=== PATIENT | female | born 1960 | race Caucasian/White ===

== ENCOUNTER 2018-12-24 08:38 | Inpatient (IN) | payer OTHER ==
[~2018-12-24] VITALS: Ht 132.1 cm; Wt 42.5 kg
[~2018-12-24 08:38] MED LIST: BISA-51 OR; BISA-51 PR; DIVA250T51 PO; DOCU-94 PO; LEVO25TA49 PO; LORA-154 PO; MULT-2 PO
[2018-12-24 09:39] LABS: Albumin 2.7 g/dL (3.4-5.0); BUN/Creatinine Ratio 15.7; Calcium 8.8 mg/dL (8.5-10.1); Potassium 4.5 mmol/L (3.5-5.1)
[2018-12-24 09:41] LABS: Basophils # (auto) 0 uL; Basophils % (auto) 0.4 % (0.0-2.0); Bilirubin, Total 0.4 mg/dL (0.2-1.0); Eosinophils # (auto) 0 uL; Eosinophils % (auto) 0.2 % (0.0-7.0); Hemoglobin 16.9 g/dL (12.2-16.2); Lymphocytes # (auto) 1.8 uL; Lymphocytes % (auto) 26.7 % (10.0-50.0); Mean Corpuscular Hemoglobin 36.7 pg (28.0-32.0); Mean Corpuscular Hgb Conc. 33.2 g/dL (32.0-36.0); Mean Corpuscular Volume 110.4 fL (80.0-100.0); Monocytes # (auto) 1.2 uL; Monocytes % (auto) 17.6 % (0.0-12.0); Neutrophils # (auto) 3.8 uL; Neutrophils % (auto) 55.1 % (37.0-80.0); Nucleated Red Blood Cells % 0.1 %; Platelet Count (auto) 259 10^3/uL (140-450); Red Blood Cells 4.62 10^6/uL (4.0-5.20); Red Cell Distribution Width 14.2 % (11.8-14.3); Total Protein 8.8 g/dL (6.4-8.2); White Blood Cell 6.9 10^3/uL (4.4-10.8)
[2018-12-24] MEDS ORDERED: SODIUM CHLORIDE 0.9% 1,000 ML IV ONE ×2 (10:12→14:00)
[2018-12-24] MEDS ORDERED: cefTRIAXone 1GM/50ML D5W 50 ML IV ONE (10:15)
[2018-12-24 10:44] LABS: Basophils # (auto) 0 uL; Eosinophils # (auto) 0 uL; Eosinophils % (auto) 0.2 % (0.0-7.0); Hematocrit 50.5 % (36.0-46.0); Nucleated Red Blood Cells % 0.1 %
[2018-12-24 10:49] LABS: Basophils % (auto) 0.2 % (0.0-2.0); Hemoglobin 16.6 g/dL (12.2-16.2); Lymphocytes # (auto) 1.9 uL; Lymphocytes % (auto) 30.2 % (10.0-50.0); Mean Corpuscular Hemoglobin 36.4 pg (28.0-32.0); Mean Corpuscular Hgb Conc. 32.9 g/dL (32.0-36.0); Mean Corpuscular Volume 110.5 fL (80.0-100.0); Monocytes % (auto) 15.5 % (0.0-12.0); Neutrophils # (auto) 3.3 uL; Neutrophils % (auto) 53.9 % (37.0-80.0); Platelet Count (auto) 279 10^3/uL (140-450); Red Blood Cells 4.57 10^6/uL (4.0-5.20); Red Cell Distribution Width 14.3 % (11.8-14.3); White Blood Cell 6.2 10^3/uL (4.4-10.8)
[2018-12-24 11:01] LABS: INR 1.04 (0.9-1.15); Partial Thromboplastin Time 27.3 sec (23.64-32.05)
[2018-12-24 11:03] LABS: Lactic Acid w/Reflex 3.6 mmol/L (0.4-2.0)
[2018-12-24 11:30] LABS: Anion Gap 7 (5-15); BUN/Creatinine Ratio 16.7; Blood Urea Nitrogen 16 mg/dL (7-18); Carbon Dioxide 26 mmol/L (21-32); Chloride 106 mmol/L (98-107); GFR African American 77 mL/min; GFR Non-African American 63 mL/min; Glucose 117 mg/dL (74-106); Potassium 4.7 mmol/L (3.5-5.1); Sodium 139 mmol/L (136-145)
[2018-12-24 11:31] LABS: Alanine Aminotransferase 19 U/L (13-56); Albumin 2.5 g/dL (3.4-5.0); Alkaline Phosphatase 126 U/L (45-117); Aspartate Aminotransferase 46 U/L (15-37); Bilirubin, Total 0.3 mg/dL (0.2-1.0); Calcium 8.8 mg/dL (8.5-10.1); Total Protein 8.4 g/dL (6.4-8.2)
[2018-12-24] MEDS ORDERED: PROMETHAZINE HCL 25 MG/ML 1ML IV PRN (14:00)
[2018-12-24] MEDS ORDERED: LACTULOSE 20Gm/30ML SOLN PO PRN (14:00)
[2018-12-24] MEDS ORDERED: NITROGLYCERIN 0.4 MG SL TAB SL PRN (14:00)
[2018-12-24] MEDS ORDERED: traMADol HCL 50 MG TAB PO PRN (14:00)
[2018-12-24] MEDS ORDERED: MORPHINE SULF INJ 2 MG/ML SYRINGE 1ML IV PRN (14:00)
[2018-12-24] MEDS ORDERED: PIPERACILLIN-TAZOB 3.375GM 100 ML IV ONE (14:00)
[2018-12-24] MEDS ORDERED: DEXTROSE (50%) 50ML SYRG IV PRN (14:00)
[2018-12-24] MEDS ORDERED: ACETAMINOPHEN 500 MG TAB PO PRN (14:00)
[2018-12-24] MEDS: SODIUM CHLORIDE 0.9% 1,000 ML IV SCH (15:00)
[2018-12-24 16:43] VITALS: BP 96/50
[2018-12-24] MEDS: PIPERACILLIN-TAZOB 3.375GM 100 ML IV SCH ×2 (18:14→23:51)
[2018-12-24] MEDS ORDERED: IOHEXOL 350 MG/ML 100ML IJ ONE (19:04)
--- NOTE | 2018-12-24 19:15 | NUR ---
Spoke with radiology in regards to pending CT angiograph with contrast. Patient unable to sign consents. Per radiology, give them a call back once consent has been given by POA.
--- NOTE | 2018-12-24 19:20 | NUR ---
Opening Shift Note Assumed care of patient. Patient AOx0 patient aphasic, does respond to touch. No S/S of distress/SOB or pain. Instructed on POC and to call for assist PRN. Bed in lowest locked position, call light within reach, side rails up x2, fall precautions in place. Will continue to monitor for changes Q1hr and PRN.
--- NOTE | 2018-12-24 20:15 | NUR ---
Unable to reach next of kin Called sister Leonard x3 with no answer, in order to get consent for CT. Left Leonard message to please call back. Called caregiver Sahra x2, with no success. Phone did not ring and there was no answering loop machine operator. Charge nurse aware. Patient asymptomatic and sleeping at this time. Will make hospitalist aware.
--- NOTE | 2018-12-24 20:40 | NUR ---
Spoke with hospitalist Spoke with TIMOTHY Sher in regards to pending CT angiograph with contrast. Informed hospitalist of d-dimer result and being unable to reach next of kin for consent. Per TIMOTHY Sher, bring consent down for him and Dr. Leongsef to sign.
--- NOTE | 2018-12-24 20:55 | NUR ---
Called radiology to inform them that consent has been signed by TIMOTHY hSer and Dr. Borrero. Will continue care.
--- NOTE | 2018-12-24 22:10 | NUR ---
Patient off unit Pt off unit via bed for CT angio.
[2018-12-24] MEDS: ENOXAPARIN SOD 40 MG/0.4 ML SYRINGE SC SCH (22:26)
[2018-12-24 23:25] VITALS: BP 95/59
[2018-12-25] VITALS (26 sets, daily range): BP systolic 67–135; BP diastolic 23–109
--- NOTE | 2018-12-25 05:02 | NUR ---
Hospitalist paged TIMOTHY Sher paged regarding patient's low BP. Waiting for call back. Continue care.
--- NOTE | 2018-12-25 05:42 | NUR ---
Hospitalist returned call COUNTY HEALTH OFFICER Christos returned call, updated on patient status and reason for call, new orders received and read back for verification. Continue care.
[2018-12-25] MEDS: SODIUM CHLORIDE 0.9% 1,000 ML IV SCH ×2 (05:46→16:56)
[2018-12-25] MEDS: PIPERACILLIN-TAZOB 3.375GM 100 ML IV SCH ×3 (05:51→18:27)
[2018-12-25] MEDS ORDERED: SODIUM CHLORIDE 0.9% 500 ML IV ONE ×2 (06:00→15:15)
--- NOTE | 2018-12-25 08:00 | NUR ---
Opening shift note Patient appears to be sleeping flat supine, awakes at sound of voice. Patient is aphagic. Resp unlab and even. No s/s of distress or pain. Seizure Precautions Patient assessed and determined to be at risk or positive for seizure activity. Bed rails padded, threat monitoring analyst remains on patient, suction set up at bedside. Repositioned patient on right side. Patient had small bowel movement. Performed skin care, changed linen. Applied Z-guard and placed opti foam on patient. Patient tolerated well. Patient remains on right side with HOB elevated.
[2018-12-25] MEDS ORDERED: PANTOPRAZOLE 40 MG TAB PO SCH (10:00)
[2018-12-25] MEDS: ENOXAPARIN SOD 40 MG/0.4 ML SYRINGE SC SCH (10:07)
--- NOTE | 2018-12-25 10:07 | NUR ---
Aspiration risk While attempting to medicate patient with PO med, patient was unable to bolus apple sauce in back of mouth and swallow. PO med held at this time. Patient remains on aspiration precautions.
[2018-12-25] MEDS ORDERED: ALBUTEROL SULF 2.5 MG/0.5ML(0.5%) NEB SOLN NEB PRN (12:30)
[2018-12-25] MEDS ORDERED: IPRATROPIUM BROM 0.5 MG/2.5ML INH SOL NEB PRN (12:30)
--- NOTE | 2018-12-25 13:10 | NUR ---
PAGED RT REGARDING ORDER FOR DEEP SUCTIONING
--- NOTE | 2018-12-25 13:18 | NUR ---
RT RETURN CALL UPDATED RT ON CURRENT DEEP SUCTIONING ORDER. RT AWARE.
--- NOTE | 2018-12-25 13:45 | NUR ---
RT AT BEDSIDE FOR DEEP SUCTIONING
--- NOTE | 2018-12-25 13:53 | NUR ---
SPUTUM SAMPLE OBTAINED AND SENT
[2018-12-25] MEDS ORDERED: CLINDAMYCIN 600MG IV 50 ML IV SCH (14:00)
--- NOTE | 2018-12-25 15:08 | NUR ---
LOW BP REASSESSED BLOOD PRESSURE. SEE EMR. UPDATED MD STEVEN ON CURRENT STATUS. RECEIVED ORDERS FOR DARLYN FOR STRICT I&O. PER SHE WILL REVIEW CHART FOR CURRENT BLOOD PRESSURE.
--- NOTE | 2018-12-25 16:00 | NUR ---
Adams catheter insertion Patient assessed and determined to be in need of adams catheter. Order obtained from MD. Patient educated on catheter and reason for insertion. All questions answered. Adams catheter 16 guage Polish inserted with clean sterile technique. Patient tolerated well.
--- NOTE | 2018-12-25 16:11 | NUR ---
SKIN ASSESSMENT-WOUND PHOTO PATIENT CONTINUES TO HAVE RED, BLANCHABLE SKIN ON SACRUM DESPITE Q2HR TURN. WOUND PHOTOS TAKEN.
--- NOTE | 2018-12-25 16:38 | NUR ---
SWALLOW EVALUATED. PATIENT HAS OWN TEETH UPPER AND LOWER. PATIENT HAS DOWNS SYNDROME BUT ABLE TO FOLLOW ONE STEP COMMANDS. NURSING PRESENT. PATIENT ABLE TO TOLERATE PUREE DIET TEXTURE WITH NECTAR THICKENED LIQUIDS. PATIENT COUGHED ON THIN LIQUIDS DURING EVALUATION. NURSING REPORTS DIFFICULTY WITH MEDS THIS AM.
--- NOTE | 2018-12-25 16:48 | NUR ---
MD return call Updated MD on current status. Received orders. Reread orders back to MD.
[2018-12-25] MEDS ORDERED: VANCOMYCIN PER PHARMACY 0 MG IV SCH (17:00)
--- NOTE | 2018-12-25 17:12 | NUR ---
REPORT RECEIVED FROM KARIS YEUNG FROM TELEMETRY FLOOR. PATIENT TO GO TO ROOM 101 ICU.
--- NOTE | 2018-12-25 17:12 | NUR ---
SBAR TO STEAM BOX HAND ENDORSED CARE AND SBAR TO STEAM BOX HAND
--- NOTE | 2018-12-25 17:15 | NUR ---
FAMILY UPDATE ATTEMPTED TO CONTACT PATIENT'S SISTER CLARIBEL TO UPDATE ON STATUS. NO ANSWER. UNABLE TO LEAVE MESSAGE ATTEMPTED TO CONTACT PATIENT'S COMMERCIAL ESTIMATOR ROMÁN. NO ANSWER. UNABLE TO LEAVE MESSAGE AT THIS TIME.
--- NOTE | 2018-12-25 17:20 | NUR ---
PATIENT TRANSFER TO ICU
--- NOTE | 2018-12-25 17:24 | NUR ---
SISTER CONTACT SISTER MARTHA CALLED BACK. UPDATED SISTER ON TX TO ICU. ALL QUESTIONS AND CONCERNS ADDRESSED AT THIS TIME.
--- NOTE | 2018-12-25 17:27 | NUR ---
PATIENT ARRIVED TO ICU VIA BED ACCOMPANIED BY CHARGE NURSE AND FLOOR NURSE. PATIENT CONNECTED TO PORTABLE MONITOR. AND PLACED ON OXYGEN. SATURATIONS 87% ON 2 LITERS, INCREASED TO 5 LITERS AND SATURATIONS INCREASED TO 95-97%. COARSE LUNG SOUNDS, SUCTIONED PATIENT. BED IN LOW POSITION, CALL LIGHT IN REACH. WILL CONTINUE TO MONITOR.
[2018-12-25] MEDS: NOREPINEPHRINE 8 MG/250ML KIT 250 ML IV SCH (19:06)
--- NOTE | 2018-12-25 19:24 | NUR ---
OPENING SHIFT RECEIVED REPORT FORM DAY SHIFT RN. ASSUMED CARE OF PATIENT. PATIENT IN BED SLEEPING WITH NO SIGNS OR SYMPTOMS OF SOB, PAIN OR DISTRESS. CURRENTLY ON 5L 02 NASAL CANNULA, 02 SAT - 94%. REPOSITIONED FOR COMFORT. LEFT ANTECUBITAL IV - CLEAN/DRY/INTACT. SANTIZO HUNG TO GRAVITY ON BED RAIL. BED IN LOWEST POSITION, PADDED SIDE RAILS UP X2, CALL LIGHT WITHIN REACH. WILL CONTINUE TO MONITOR.
[2018-12-25] MEDS ORDERED: VANCOMYCIN 750mg/250ml 250 ML IV ONE (20:00)
[2018-12-25] MEDS: IPRATROPIUM BROM 0.5 MG/2.5ML INH SOL NEB SCH (20:35)
[2018-12-25] MEDS: ACETYLCYSTEINE 10 %(100MG/ML) SOL 4ML NEB SCH (20:35)
[2018-12-25] MEDS: ALBUTEROL SULF 2.5 MG/0.5ML(0.5%) NEB SOLN NEB SCH (20:35)
--- NOTE | 2018-12-25 20:35 | NUR ---
IV INSERTION LEFT WRIST 22G IV INSERTED. PATIENT TOLERATED WELL.
--- NOTE | 2018-12-25 21:30 | NUR ---
PATIENT TRANSFERRED TO ROOM 266.
[2018-12-25] MEDS: VALPROATE INJ 250 MG in SODIUM CHL 0.9% 50 ML IV SCH (22:44)
[2018-12-25] MEDS: FAMOTIDINE (10MG/ML) 2ML VL IV SCH (22:44)
[2018-12-26] VITALS (90 sets, daily range): BP systolic 68–122; BP diastolic 37–83
[2018-12-26] MEDS: PIPERACILLIN-TAZOB 3.375GM 100 ML IV SCH ×4 (00:04→18:09)
[2018-12-26] MEDS: ALBUTEROL SULF 2.5 MG/0.5ML(0.5%) NEB SOLN NEB SCH ×5 (00:05→23:27)
[2018-12-26] MEDS: IPRATROPIUM BROM 0.5 MG/2.5ML INH SOL NEB SCH ×5 (00:05→23:27)
[2018-12-26] MEDS: ACETYLCYSTEINE 10 %(100MG/ML) SOL 4ML NEB SCH ×5 (00:05→23:27)
--- NOTE | 2018-12-26 03:30 | NUR ---
MORNING CARE PERFORMED MORNING CARE WITH CHG WIPES AND WASH CLOTHS TO THE FACE. PARTIAL LINEN CHANGE AND GOWN CHANGED. REPOSITIONED FOR COMFORT. BED IN LOWEST POSITION, PADDED SIDE RAILS UP X2, CALL LIGHT WITHIN REACH. WILL CONTINUE TO MONITOR.
--- NOTE | 2018-12-26 05:40 | NUR ---
CALLED QUYEN (SISTER) AND UPDATED HER ON PLAN OF CARE.
[2018-12-26 05:59] LABS: Urine Bacteria NONE SEEN /hpf (None Seen); Urine Blood 1+ /uL (Negative); Urine Specific Gravity 1.018 (1.001-1.035); Urine WBC 3 /hpf (0 - 5)
--- NOTE | 2018-12-26 07:25 | NUR ---
END OF SHIFT REPORT GIVEN TO DAY SHIFT RN.
--- NOTE | 2018-12-26 07:30 | NUR ---
Opening Shift Note Assumed care of patient, laying in bed, eyes closed, arousable to shaking, oriented to self, unable to follow commands. No S/S of distress/SOB or pain. See interventions for complete assessment. Bed locked on low position, side rails up x2, bed alarms on at all times, will continue to monitor for changes Q1hr and PRN.
--- NOTE | 2018-12-26 07:31 | NUR ---
Levophed running at 4mcg/min via LT AC IV, BP 84/44, increased Levophed to 5mcg/min. Will continue to monitor.
[2018-12-26] MEDS ORDERED: VANCOMYCIN 750mg/250ml 250 ML IV SCH (10:15)
[2018-12-26] MEDS: LEVOTHYROXINE SODIUM 100 MCG/5 ML INJ IV SCH (11:03)
[2018-12-26] MEDS: ENOXAPARIN SOD 40 MG/0.4 ML SYRINGE SC SCH (11:03)
[2018-12-26] MEDS: FAMOTIDINE (10MG/ML) 2ML VL IV SCH ×2 (11:03→22:32)
[2018-12-26] MEDS: VALPROATE INJ 250 MG in SODIUM CHL 0.9% 50 ML IV SCH ×2 (12:08→22:00)
--- NOTE | 2018-12-26 13:30 | NUR ---
Call placed to patient's sister Leonard via telephone number [phone] to obtain telephone consent for PICC line insertion, not picking up, left a message. Awaiting call back.
--- NOTE | 2018-12-26 13:35 | NUR ---
Call placed to patient's caregiver Sahra, not a working number. Addendum: 12/26/18 at 1412 by Duyen Diaz RN telephone number [phone]
--- NOTE | 2018-12-26 14:12 | NUR ---
Placed another call to patient's caregiver Sahra at telephone number [phone], not picking up, message left. Awaiting call back.
--- NOTE | 2018-12-26 14:35 | NUR ---
Dr Blake at bedside, updated on patient's status. Patient seen and examined. No new orders at this time. Addendum: 12/26/18 at 1437 by Duyen Diaz RN With new orders, will carry out
--- NOTE | 2018-12-26 15:55 | NUR ---
MIDLINE placement Patient/Patient significant other educated on need for MIDLINE placement. All risks and benefits explained and all questions and concerns addressed prior to procedure. Noted past medical history and allergies with no contraindications. INR and Plt counts within acceptable range. 4 fr MIDLINE inserted via right brachial vein using [email or web address]'s [employer] US and Tip Location System. Sterile technique with maximum barrier precautions utilized. Blood return obtained from the single lumen and it flushed easily with NS using proper technique. MIDLINE secured with Stat-lock; biodisc and occlusive dressing applied. Less than 5ml EBL noted during procedure. MIDLINE 20cm internally w/ 0cm externally. *Baseline Arm Circumference 24cm at 1cm above inserion site. MIDLINE lot # [id number]. Note:
--- NOTE | 2018-12-26 15:56 | NUR ---
OK to use MIDLINE Elizabeth Geller. notified now OK to use MIDLINE.
--- NOTE | 2018-12-26 16:00 | NUR ---
Received call from patient's sister Leonard, able to provide password. Updated on patient's status and POC, sister verbalized understanding. Informed MD ordered a PICC line for this patient and her consent is needed for the procedure , Leonard states "I will call my friend doctor first." Awaiting call back.
[2018-12-26] MEDS: NOREPINEPHRINE 8 MG/250ML KIT 250 ML IV SCH (17:31)
[2018-12-26] MEDS: SODIUM CHLORIDE 0.9% 1,000 ML IV SCH (18:09)
--- NOTE | 2018-12-26 18:45 | NUR ---
Patient ate pureed diet with maximum assist, strict aspiration precaution in placed. Patient consumed 30% of dinner tray.
--- NOTE | 2018-12-26 19:27 | NUR ---
OPENING SHIFT RECEIVED REPORT FROM DAY SHIFT RN. ASSUMED CARE OF PATIENT. PATIENT IN BED WATCHING TV WITH NO SIGNS OR SYMPTOMS OF SOB, PAIN OR DISTRESS. CURRENTLY ON 2L 02 NASAL CANNULA, 02 SAT - 96%. RIGHT UPPER ARM MIDLINE, LEFT ANTECUBITAL AND LEFT WRIST IV - CLEAN/DRY/INTACT. SANTIZO HUNG TO GRAVITY ON BED RAIL. REPOSITIONED FOR COMFORT. BED IN LOWEST POSITION, PADDED SIDE RAILS UP X2, CALL LIGHT WITHIN REACH. WILL CONTINUE TO MONITOR.
--- NOTE | 2018-12-26 22:44 | NUR ---
PAGED HOSPITALIST, AWAITING CALL BACK.
--- NOTE | 2018-12-26 22:53 | NUR ---
HOSPITALIST CALLED BACK, MADE AWARE THAT DEPACON IV UNAVAILABLE. GAVE OK TO HOLD MED AT THIS TIME.
[2018-12-27] VITALS (68 sets, daily range): BP systolic 77–118; BP diastolic 39–76
[2018-12-27] MEDS: PIPERACILLIN-TAZOB 3.375GM 100 ML IV SCH ×4 (00:14→18:06)
[2018-12-27] MEDS: SODIUM CHLORIDE 0.9% 1,000 ML IV SCH ×2 (01:00→11:00)
--- NOTE | 2018-12-27 04:10 | NUR ---
MORNING CARE PERFORMED MORNING CARE WITH CHG WIPES AND WASH CLOTHS TO THE FACE. PARTIAL LINEN CHANGE AND GOWN CHANGED. REPOSITIONED FOR COMFORT. SKIN REASSESSED AT THIS TIME. WILL CONTINUE TO MONITOR.
[2018-12-27 05:00] LABS: Eosinophils # (auto) 0.2 uL; Monocytes # (auto) 0.4 uL; Red Cell Distribution Width 13.7 % (11.8-14.3); White Blood Cell 2.5 10^3/uL (4.4-10.8)
[2018-12-27 05:03] LABS: Basophils # (auto) 0.1 uL; Basophils % (auto) 2.4 % (0.0-2.0); Eosinophils % (auto) 6.4 % (0.0-7.0); Hematocrit 39.6 % (36.0-46.0); Hemoglobin 13.4 g/dL (12.2-16.2); Lymphocytes # (auto) 0.7 uL; Lymphocytes % (auto) 26.5 % (10.0-50.0); Mean Corpuscular Hemoglobin 36.9 pg (28.0-32.0); Mean Corpuscular Hgb Conc. 33.7 g/dL (32.0-36.0); Mean Corpuscular Volume 109.3 fL (80.0-100.0); Monocytes % (auto) 16.7 % (0.0-12.0); Neutrophils # (auto) 1.2 uL; Nucleated Red Blood Cells % 0.2 %; Platelet Count (auto) 212 10^3/uL (140-450); Red Blood Cells 3.62 10^6/uL (4.0-5.20)
--- NOTE | 2018-12-27 05:20 | NUR ---
SPOKE WITH QUYEN (SISTER) UPDATED HER ON PLAN OF CARE.
[2018-12-27 05:26] LABS: Albumin 1.6 g/dL (3.4-5.0); BUN/Creatinine Ratio 5.7; Calcium 7.7 mg/dL (8.5-10.1)
[2018-12-27 05:30] LABS: Potassium 2.8 mmol/L (3.5-5.1)
--- NOTE | 2018-12-27 05:33 | NUR ---
PAGED HOSPITALIST, AWAITING CALL BACK.
[2018-12-27 05:37] LABS: Bilirubin, Total 0.2 mg/dL (0.2-1.0); Total Protein 5.5 g/dL (6.4-8.2)
[2018-12-27] MEDS: ACETYLCYSTEINE 10 %(100MG/ML) SOL 4ML NEB SCH ×3 (06:28→17:56)
[2018-12-27] MEDS: ALBUTEROL SULF 2.5 MG/0.5ML(0.5%) NEB SOLN NEB SCH ×3 (06:28→17:56)
[2018-12-27] MEDS: IPRATROPIUM BROM 0.5 MG/2.5ML INH SOL NEB SCH ×3 (06:28→17:56)
[2018-12-27] MEDS ORDERED: POTASSIUM EFFERVESENT TAB 25 MEQ PO ONE (06:30)
--- NOTE | 2018-12-27 06:38 | NUR ---
HOSPITALIST CALLED BACK, GAVE ORDERS FOR 40 MEQ POTASSIUM PO.
--- NOTE | 2018-12-27 07:24 | NUR ---
END OF SHIFT REPORT GIVEN TO DAY SHIFT RN.
--- NOTE | 2018-12-27 07:30 | NUR ---
RECEIVED PATIENT SITTING UP IN THE BED, O2 AT 2L BY N/C, PATIENT IS NONVERBAL AND DOESN'T FOLLOW COMMANDS, SHE IS MENTALLY CHALLENGED, SCD'S TO KRYSTYNA LEGS, SANTIZO TO GRAVITY, SALINE LOCK TO THE LEFT WRIST 22G, FLUSHED AND PATENT, LAC WITH 20G SALINE LOCK CATHETER WITH ANTIBIOTICS INFUSING BY THE IV PUMP, MIDLINE TO THE MAZIN WITH NOREPINEPHRINE AT 5MCG/KG/MIN INFUSING BY THE IV PUMP,
--- NOTE | 2018-12-27 08:30 | NUR ---
WAS FEED HER BREAKFAST AND EATS WELL
--- NOTE | 2018-12-27 09:01 | NUR ---
DR ZABALA IN TO SEE THE PATIENT AND IS AWARE OF THE POTASSIUM LEVEL
--- NOTE | 2018-12-27 09:20 | NUR ---
DR ZABALA TALKING TO THE SISTER REGARDING THE THE POC FOR THE PATIENT
--- NOTE | 2018-12-27 09:50 | NUR ---
PATIENT REMAINS A FULL CODE PER THE SISTER
[2018-12-27] MEDS: LEVOTHYROXINE SODIUM 100 MCG/5 ML INJ IV SCH (10:05)
[2018-12-27] MEDS: ENOXAPARIN SOD 40 MG/0.4 ML SYRINGE SC SCH (10:05)
[2018-12-27] MEDS: VALPROATE INJ 250 MG in SODIUM CHL 0.9% 50 ML IV SCH ×2 (10:05→22:40)
[2018-12-27] MEDS: FAMOTIDINE (10MG/ML) 2ML VL IV SCH ×2 (10:05→22:40)
--- NOTE | 2018-12-27 10:05 | NUR ---
EXPLAIN THE MEDICATIONS TO THE PATIENT EVEN THOUGH SHE DOESN'T UNDERSTAND THE DOSAGE, USAGE AND THE SIDE EFFECTS, AND MEDS GIVEN ORDERED
--- NOTE | 2018-12-27 11:00 | NUR ---
NOREPINEPHRINE WAS STOPPED WILL CONTINUE TO MONITOR PATIENT'S B/P, TO KEEP GREATER THEN 90
--- NOTE | 2018-12-27 11:00 | NUR ---
BREATHING TREATMENT BEING GIVEN PATIENT SUCTIONED ORALLY WAS UNABLE TO BE NASALLY SUCTION BY RT
--- NOTE | 2018-12-27 12:00 | NUR ---
PATIENT TRIES TO PUSH YOU AWAY, EVERY TIME YOU TRY TO TAKE HER BLOOD OR SUCTION OR HELP HER
[2018-12-27] MEDS: Ensure HIGH Protein Chocolate 8oz Bottle PO SCH ×3 (12:25→23:23)
--- NOTE | 2018-12-27 12:45 | NUR ---
BEING FEED HER LUNCH BY THE CT Addendum: 12/27/18 at 1247 by Radha Calderon RN BY NGUYEN MACARIO
--- NOTE | 2018-12-27 13:30 | NUR ---
PATIENT HAD A SMALL BM, CLEANED, Z GUARD APPLIED TO THE SACRUM AND LINEN CHANGED
[2018-12-27] MEDS ORDERED: VANCOMYCIN 500 MG in D5W 5% 100 ML IV SCH (14:00)
--- NOTE | 2018-12-27 14:29 | NUR ---
FIRST SET OF BLOOD CULTURES BEING DRAWN
--- NOTE | 2018-12-27 14:31 | NUR ---
B/P 99/42, PLACED A MITTEN TO THE LEFT HAND PATIENT PULLING IN HER SANTIZO
--- NOTE | 2018-12-27 14:51 | NUR ---
Nutrition Assessment/consult Notes please see attached link for complete assessment Est. Needs BW 51 [id number] kcal (23-25 kcal/kgBW), 51-61 gms pro (1.0-1.2 gms/kgBW r/t severe hypoalb). Will continue to monitor pertinent labs and reassess nutrient need prn Addendum: 12/27/18 at [address] Amended: Links added.
[2018-12-27 14:52] LABS: BUN/Creatinine Ratio 4.3; Calcium 7.4 mg/dL (8.5-10.1); Potassium 3.1 mmol/L (3.5-5.1)
[2018-12-27] MEDS ORDERED: POTASSIUM CHL 20 Meq TABLET PO ONE (15:00)
--- NOTE | 2018-12-27 15:30 | NUR ---
POTASSIUM GIVEN 40MEQ FOR REPEAT LEVEL OF 3.1, POTASSIUM TAKEN PO
--- NOTE | 2018-12-27 16:02 | NUR ---
SITTING UP IN BED JUST LOOKING AROUND THE ROOM, NO VERBAL RESPONSE
[2018-12-27] MEDS: NOREPINEPHRINE 8 MG/250ML KIT 250 ML IV SCH (17:00)
--- NOTE | 2018-12-27 17:00 | NUR ---
LOOKING TOWARDS THE TV AND LOOKING AROUND THE ROOM
--- NOTE | 2018-12-27 17:56 | NUR ---
Respiratory note: AT BEDSIDE FOR MED MARTIN PONCE.
--- NOTE | 2018-12-27 18:00 | NUR ---
SISTER (SHANNON)CALLED TO INQUIRE ABOUT THERE PATIENT AND EXPRESS TO HER THERE WAS NO CHANGE FROM WHEN SHE TALKED TO THE DOCTOR EARLIER
--- NOTE | 2018-12-27 18:34 | NUR ---
SITTING UP IN BED BEING FEED HER DINNER AND EATING NO PROBLEMS WITH SWALLOWING, NS INFUSING INTO THE MAZIN MIDLINE BY THE IV PUMP AND ANTIBIOTICS INFUSING INTO THE MAZIN MIDLINE BY THE IV PUMP, SANTIZO TO GRAVITY, O2 AT 2L BY N/C, SCD TO THE LEFT LEG, RT LEG HAS B/P CUFF ON IT, NO SIGNS OF PAIN, WILL CONTINUE TO MONITOR AND GIVE REPORT TO THE NEXT SHIFT
--- NOTE | 2018-12-27 19:30 | NUR ---
Opening Shift Note Assumed care of patient, lying on bed with eyes closed, arousal by voice, nonverbal, no eyes contact. Breathing on O2NC 2LPM, even and nonlabored, No S/S of distress/SOB or pain. 22G saline lock at left wrist. Mid-line at right upper arm, CDI site, infusing NS. Bed in low position, call light with in reach, all alarms are audible, fall and safety precaution in place. No family at bedside at this time. SCD on both legs. Instructed on POC, will continue to monitor for changes Q1hr and PRN.
--- NOTE | 2018-12-27 22:35 | NUR ---
Condition update/ supplement Pt's condition and v/s stable. Fed Pt with Ensure mixed with thickener, Pt swallowed slowly, sometimes kept the food in the mouth and swallowed slowly. Continue care.
[2018-12-28] VITALS: BP_SYST 103; BP_SYST 97; BP_DIAS 63; BP_DIAS 64
[2018-12-28] MEDS: ALBUTEROL SULF 2.5 MG/0.5ML(0.5%) NEB SOLN NEB SCH ×4 (00:12→19:35)
[2018-12-28] MEDS: IPRATROPIUM BROM 0.5 MG/2.5ML INH SOL NEB SCH ×4 (00:12→19:35)
[2018-12-28] MEDS: ACETYLCYSTEINE 10 %(100MG/ML) SOL 4ML NEB SCH ×4 (00:12→19:35)
--- NOTE | 2018-12-28 00:12 | NUR ---
Respiratory note: AT BEDSIDE FOR MED NEBTX
--- NOTE | 2018-12-28 00:23 | NUR ---
Respiratory note: DEEP ORAL SX X1 FOR SMALL THICK CREAMY REYNOLDS/PINK TINGE.
[2018-12-28] MEDS: PIPERACILLIN-TAZOB 3.375GM 100 ML IV SCH ×2 (00:31→06:35)
--- NOTE | 2018-12-28 01:15 | NUR ---
Elimination Pt incontinence. Pt passed small amount of brown stool. Perirectal cleaned, z-guard applied, new Optifoam placed. Noted Small amount of urine leaking on the pad, will continue monitor.
[2018-12-28 04:00] VITALS: BP 103/63
--- NOTE | 2018-12-28 04:30 | NUR ---
Patient bathe/linen change Patient given complete bath with CHG wipes. Skin integrity assessed for any changes, no new changes, Optifoam intact, z-guard applied. Linens changed. Patient repositioned for comfort. Addendum: 12/28/18 at 0736 by Esthela Dawn RN Mouth care done. Tolerated well.
[2018-12-28] MEDS: Ensure HIGH Protein Chocolate 8oz Bottle PO SCH ×4 (06:00→22:00)
[2018-12-28] MEDS: SODIUM CHLORIDE 0.9% 1,000 ML IV SCH (06:37)
[2018-12-28 07:10] LABS: White Blood Cell 2.5 10^3/uL (4.4-10.8)
[2018-12-28 07:16] LABS: Mean Corpuscular Hemoglobin 36.8 pg (28.0-32.0); Mean Corpuscular Volume 108.7 fL (80.0-100.0)
[2018-12-28 07:18] LABS: Hematocrit 39.6 % (36.0-46.0); Hemoglobin 13.4 g/dL (12.2-16.2); Mean Corpuscular Hgb Conc. 33.9 g/dL (32.0-36.0); Platelet Count (auto) 209 10^3/uL (140-450); Red Blood Cells 3.64 10^6/uL (4.0-5.20); Red Cell Distribution Width 13.8 % (11.8-14.3)
[2018-12-28 07:23] LABS: Band Neutrophils % (manual) 0; Basophils % (manual) 0 (0.0-2.0); Blast Cells 0; Metamyelocytes % 0; Myelocytes % 0; Promyelocytes % 0; Reactive Lymphocytes 0
--- NOTE | 2018-12-28 07:30 | NUR ---
RECEIVED PATIENT SITTING UP IN THE BED, NO VERBAL RESPONSE BUT EYES OPEN, PATIETN IS MENTALLY CHALLENGED PER THE SISTER O2 AT 2L BY N/C, SANTIZO TO GRAVITY, SCD'S TO LEGS, 22G SALINE LOCK TO THE LEFT WRIST FLUSHED AND PATENT, MIDLINE TO THE MAZIN WITH NS AT 60ML/HR INFUSING BY THE IV PUMP, NO SIGNS OF PAIN OR SOB
[2018-12-28 07:31] LABS: Calcium 7.4 mg/dL (8.5-10.1); Magnesium 1.9 mg/dL (1.6-2.6)
[2018-12-28 07:35] VITALS: BP 143/68
[2018-12-28 07:49] LABS: Eosinophils % (manual) 4 (0-7); Lymphocytes % (manual) 46 (10.0-50.0); Monocytes % (manual) 11 (0-12)
--- NOTE | 2018-12-28 08:30 | NUR ---
FEED BREAKFAST AND TOLERATED NO PROBLEM WITH SWALLOWING, NO SIGNS OF PAIN
--- NOTE | 2018-12-28 09:20 | NUR ---
dr ames in to see the patient ad spoke to her sister and she stated to make the patient a dnr
--- NOTE | 2018-12-28 10:00 | NUR ---
EXPLAIN MEDICATIONS TO THE PATIENT REGARDING THE DOSAGE,USAGE AND THE SIDE EFFECTS ,EVEN THOUGHT SHE DOESN'T UNDERSTAND AND MEDS GIVEN ORDERED
[2018-12-28] MEDS ORDERED: BISACODYL 5 MG EC TAB PO PRN (10:15)
[2018-12-28] MEDS ORDERED: LEVOTHYROXINE SODIUM 100 MCG/5 ML INJ IV ONE (10:30)
[2018-12-28] MEDS ORDERED: FAMOTIDINE (10MG/ML) 2ML VL IV ONE (10:30)
[2018-12-28] MEDS: ENOXAPARIN SOD 40 MG/0.4 ML SYRINGE SC SCH (10:30)
[2018-12-28] MEDS ORDERED: LEVOFLOXACIN 750MG 150 ML IV ONE (10:30)
--- NOTE | 2018-12-28 10:30 | NUR ---
RT SUCTIONING THE PATIENT
--- NOTE | 2018-12-28 11:00 | NUR ---
WOUND CARE NOTE: LATE ENTRY. IN TO SEE PATIENT FOR SKIN INTEGRITY MONITORING D/T LOW CHRISTOPHER SCORE 12. PATIENT ADMITTED TO [facility] WITH DIAGNOSIS OF PNA. PATIENT IS DEVELOPMENTALLY DELAYED. SHE IS MAX ASSIST FOR HER ADL'S, NON VERBAL. PATIENT IS NOTED TO BE WOUND FREE AT THIS TIME, WITH PINK, BLANCHABLE SKIN OVER BONY PROMINENCES. SKIN/WOUND CARE PLAN IMPLEMENTED. RECOMMEND: FREQUENT TURN SCHEDULE Q 2 HOURS, PRN CONDITIONS PERMIT, WITH PRESSURE REDISTRIBUTION USING PILLOWS/WEDGES, BID/PRN APPLICATION MOISTURE BARRIER CREAM, OPTIFOAM GENTLE SACRAL DRESSING, DIETARY MONITORING, CONTINUED MONITORING BY WOUND CARE TEAM.
--- NOTE | 2018-12-28 11:10 | NUR ---
VITO PHAM A SMALL BM
--- NOTE | 2018-12-28 11:15 | NUR ---
WOUND CARE NURSE IN TO ASSESS PATIENT
[2018-12-28 11:35] VITALS: BP 102/79
--- NOTE | 2018-12-28 12:00 | NUR ---
dr ames into see the patient and wrote for transfer to tele
[2018-12-28] MEDS: VALPROATE INJ 250 MG in SODIUM CHL 0.9% 50 ML IV SCH (12:24)
--- NOTE | 2018-12-28 13:07 | NUR ---
patient was feed her lunch and tolerated, no problems with swallowing
--- NOTE | 2018-12-28 14:00 | NUR ---
MEDS GIVEN ORDERED, PATIETN STILL ABLE TO SWALLOW WITHOUT ANY PROBLEM
--- NOTE | 2018-12-28 14:49 | NUR ---
NOTIFIED THAT PATIENT WAS GOING TO ROOM 204 WITH THE NURSE BANDAR YEUNG
--- NOTE | 2018-12-28 15:25 | NUR ---
REPORT CALLED TO BANDAR YEUNG, PLACED ON TELE 27, TAKEN TO ROOM BY THE BED
--- NOTE | 2018-12-28 15:28 | NUR ---
Assumed care of patient, transferred to room via bed from [facility]. Aphasic, localized to pain movements and mentally delayed. Patient is a Down Syndrome case. Received reports earlier from Shelbi Calderon RN [facility]. Initiated a high risk for fall and seizure precaution. Bed alarm on and side rails up x2. Patient is DNR. Initiated turning to sides every 2 hours. Kept thermoregulated. Will continue to monitor.
[2018-12-28 17:00] VITALS: BP 106/66
--- NOTE | 2018-12-28 20:48 | NUR ---
OPENING SHIFT NOTE Assumed care of patient who is alert, but non-verbal. Tracks with eyes. Currently on 3L O2 via NC. Course breath sounds noted bilaterally, with wet cough. Midline to right upper arm is intact and patent. Flushed with 10ml NS. 22 gauge IV in left wrist intact and patent. Flushed with 10ml NS. Cruz catheter in place and draining clear yellow urine to gravity. Patient repositioned to right side and barrier cream applied to redness on sacrum. Bed is in low locked position with padded side rails up x2. Call light is within reach. Will continue to monitor for changes PRN.
[2018-12-28] MEDS: DOCUSATE SOD 100 MG CAP PO SCH (21:48)
[2018-12-28 22:16] VITALS: BP 104/69
--- NOTE | 2018-12-28 23:10 | NUR ---
Patient repositioned. Suctioned orally x1 to maintain patent airway. Tolerated well.
[2018-12-29] MEDS: ACETYLCYSTEINE 10 %(100MG/ML) SOL 4ML NEB SCH ×4 (01:04→18:28)
[2018-12-29] MEDS: IPRATROPIUM BROM 0.5 MG/2.5ML INH SOL NEB SCH ×4 (01:04→18:28)
[2018-12-29] MEDS: ALBUTEROL SULF 2.5 MG/0.5ML(0.5%) NEB SOLN NEB SCH ×4 (01:05→18:28)
[2018-12-29 01:45] VITALS: BP 104/69
--- NOTE | 2018-12-29 02:30 | NUR ---
Oral care provided.
--- NOTE | 2018-12-29 04:00 | NUR ---
Patient repositioned; Tolerated well.
[2018-12-29 05:33] VITALS: BP 115/94
[2018-12-29] MEDS: Ensure HIGH Protein Chocolate 8oz Bottle PO SCH ×4 (06:27→22:00)
[2018-12-29] MEDS: LEVOTHYROXINE SODIUM 50 MCG TAB PO SCH (06:44)
--- NOTE | 2018-12-29 06:45 | NUR ---
Patient repositioned to left side. Tolerated well.
--- NOTE | 2018-12-29 07:48 | NUR ---
Opening Note Assumed care of patient, she is A & O x 1, patient sleeps very deep, have to shake patient and say her name to wake her up this morning. Patient was able to smile. She is unable to communicate independently. Patient has been turned this morning to her left side. Will continue to turn Q2h and PRN, HOB at 45 degrees, patient on 3L nasal cannula, suction is set up at bedside. Patient heels off of bed using pillow under calves, will monitor Q1h and PRN. Bed is in low, locked position, bed alarm is on. DRUG SAFETY ASSOCIATE is aware that patient is a feeder, on strict aspiration precautions, and on a pureed and thickened liquid diet.
[2018-12-29 09:26] VITALS: BP 129/70
--- NOTE | 2018-12-29 09:40 | NUR ---
Cleaned patient with NUMERICAL CONTROL ROUTER OPERATOR, patient had a bowel movement, the adams catheter seems to have been leaking, adjusted the position of the catheter. Will continue to monitor, placed z guard on sacrum turned patient to left side.
[2018-12-29] MEDS: Pro-Stat SF 30ml Vanilla PO SCH (10:00)
--- NOTE | 2018-12-29 10:05 | NUR ---
Dr. Solis at bedside.
[2018-12-29] MEDS: FAMOTIDINE 20 MG TAB PO SCH (10:11)
[2018-12-29] MEDS: LEVOFLOXACIN 250MG 50 ML IV SCH (10:11)
[2018-12-29] MEDS: ENOXAPARIN SOD 40 MG/0.4 ML SYRINGE SC SCH (10:45)
--- NOTE | 2018-12-29 11:25 | NUR ---
Caregiver Sahra at bedside, able to speak with Dr. Solis. Regarding hospice care when patient is discharged, caregiver phone number [phone].
--- NOTE | 2018-12-29 12:50 | NUR ---
Patient resisting any food other than applesauce. Will continue to attempt at each meal.
[2018-12-29 12:59] VITALS: BP 117/58
--- NOTE | 2018-12-29 14:32 | NUR ---
Turned and cleaned patient, she is incontinent, had another small bowel movement, catheter is still leaking, readjusted placement and ensured drainage, it is draining at this time. Will continue to monitor. Turned patient.
--- NOTE | 2018-12-29 16:03 | NUR ---
assessment Patient is a 58 year old female who is confused. Per patients sister Leonard who is patients POA prior to admission patient lived at [facility]. Per Leonard patient will return to [facility] on discharge. I informed Leonard patient has a ss consult for hospice. Per Leonard she has no preference and to send to someone who accepts [facility]. MD order was sent to [facility]. Diane from [facility] has contacted Leonard and has emailed her the consents. Waiting on discharge now and consents to be signed. Leonard verbalized understanding and agreed to discharge plan on hospice. Addendum: 12/30/18 at 1608 by Christine ELIAS Amended: Links added.
[2018-12-29] MEDS: VALPROIC ACID 250 MG/5 ML ORAL SOLN PO SCH ×2 (16:30→22:06)
[2018-12-29 16:44] VITALS: BP 98/64
--- NOTE | 2018-12-29 18:00 | NUR ---
Feeding patient thickened fluids, water and apple juice, tolerating well. Turned patient, cleaned patient, adams catheter is leaking, using clean technique, used adams care wipes to clean catheter, deinflated and reinflated balloon, to troubleshoot, and repositioned, will continue to monitor. Placed sacral optifoam.
--- NOTE | 2018-12-29 19:15 | NUR ---
OPENING SHIFT NOTE Assumed care of patient who is Alert, but non-verbal; withdraws from pain. Currently on 3L NC with course breath sounds throughout noted. Patient suctioned orally to maintain patent airway. Repositioned onto left side and heels floated. Preventative Optifoam in place over sacrum. Bed is in low locked position with padded side rails up x2. Aspiration and fall precautions in place. Call light is within reach. Will continue to monitor for changes PRN.
[2018-12-29 21:14] VITALS: BP 107/78
[2018-12-29] MEDS: DOCUSATE SOD 100 MG CAP PO SCH (22:06)
--- NOTE | 2018-12-29 22:10 | NUR ---
Patient is coughing, with audible secretions in airway. Unable to clear independently. Patient suctioned orally x1 to maintain patent airway. Tolerated well. Aspiration precautions in place.
--- NOTE | 2018-12-29 23:15 | NUR ---
Turned and cleaned patient. She is incontinent and had small soft BM. Also noted leakage of urine around Cruz catheter. Balloon deflated, catheter adjusted and 15ml NS replaced in balloon. Will continue to monitor PRN.
[2018-12-30] MEDS: IPRATROPIUM BROM 0.5 MG/2.5ML INH SOL NEB SCH ×4 (00:29→18:03)
[2018-12-30] MEDS: ALBUTEROL SULF 2.5 MG/0.5ML(0.5%) NEB SOLN NEB SCH ×4 (00:29→18:03)
[2018-12-30] MEDS: ACETYLCYSTEINE 10 %(100MG/ML) SOL 4ML NEB SCH ×4 (00:30→18:03)
--- NOTE | 2018-12-30 04:27 | NUR ---
Turned and cleaned patient. She is incontinent and had a small soft BM. Minimal leakage around Cruz catheter noted. Nicole-care provided and catheter repositioned. Patient tolerates well.
[2018-12-30 05:13] VITALS: BP_SYST 105; BP_SYST 86; BP_DIAS 44; BP_DIAS 61
[2018-12-30] MEDS: Ensure HIGH Protein Chocolate 8oz Bottle PO SCH ×4 (06:00→21:40)
[2018-12-30] MEDS: VALPROIC ACID 250 MG/5 ML ORAL SOLN PO SCH ×3 (06:14→21:39)
[2018-12-30] MEDS: LEVOTHYROXINE SODIUM 50 MCG TAB PO SCH (06:14)
--- NOTE | 2018-12-30 06:35 | NUR ---
Respiratory note: POST MED NEB TX PT WAS SUCTIONED FOR A MODERATE AMOUNT OF THICK YELLOW SECRETIONS VIA YANKAUER.
[2018-12-30 08:14] VITALS: BP 93/55
[2018-12-30] MEDS: LEVOFLOXACIN 250MG 50 ML IV SCH (08:47)
[2018-12-30] MEDS: ENOXAPARIN SOD 40 MG/0.4 ML SYRINGE SC SCH (08:47)
[2018-12-30] MEDS: FAMOTIDINE 20 MG TAB PO SCH (08:48)
[2018-12-30] MEDS: Pro-Stat SF 30ml Vanilla PO SCH (08:48)
--- NOTE | 2018-12-30 10:32 | NUR ---
Adams catheter dc'd Order to discontinue adams catheter. Adams dc'd with clean technique following deflation of balloon. Patient tolerated well with no complaints of pain. Continue care.
--- NOTE | 2018-12-30 10:35 | NUR ---
IV removal IV DC'd with clean sterile technique, catheter fully intact. Pressure dressing applied to site. Patient tolerated well. NOTE:
[2018-12-30] MEDS ORDERED: [UNRECOGNIZED DRUG - CODE] PO (10:42)
[2018-12-30] MEDS ORDERED: ALB5IS NEB (10:42)
[2018-12-30] MEDS ORDERED: IPR002IS NEB (10:42)
[2018-12-30 12:09] VITALS: BP 114/62
--- NOTE | 2018-12-30 16:47 | NUR ---
D/C patternmaker plaster and plastic Zenia advised me that Caregiver Sahra was at bedside and was requesting to speak to me. Spoke to Pt caregiver Sahra at bedside and she stated Pt is unable to go back to [facility] residential due to Pt having oxygen and needing level 4 care. Pt caregiver Sahra provided me with [facility] horticulture worker Doug Ph:) who will be looking placement for Pt. Contacted geriatric social worker Doug at [facility] and was unable to get a hold of her however left her a voicemail regarding placement. Followed up called with [facility] hospice regarding placement spoke to Diane. Per Diane from [facility] advised me that Pt has been accepted to [facility] in [place] and [facility] is pending once that is clear a room number will be given.
[2018-12-30 16:49] VITALS: BP 83/58
--- NOTE | 2018-12-30 17:38 | NUR ---
IV insertion IV access obtained, via clean sterile technique by inserting 24 gauge catheter at after attempt(s). IV secured properly. No trauma to site. Patient tolerated well. NOTE:
--- NOTE | 2018-12-30 18:09 | NUR ---
Respiratory note: AT BEDSIDE FOR MED MARTIN PONCE.
--- NOTE | 2018-12-30 18:33 | NUR ---
[facility] WAS CALLING TO GET REPORT ON PATIENT. AT THIS TIME NO TRANSPORT HAS BEEN SET UP. WILL LET ONCOMING RN KNOW TO CALL [facility] FOR REPORT IF TRANSPORT IS SET UP AT [phone]
--- NOTE | 2018-12-30 19:00 | NUR ---
OPENING NOTE Received report from day shift RN. Patient is A&O X's 1. Patient is nonverbal. She maintains good eye contact and shows no s/s of distress or pain. Patient's HOB is elevated. Aspiration and seizure precautions are in place. Attempted to provide oral suction, patient has a weak/moist cough. able to suction little phlegm. Bed is in lowest/locked position with padded side rails up X's 2 and bed alarm is on. Patient is incontinent, the sheets are clean and dry. Will continue care.
[2018-12-30 21:18] VITALS: BP 106/55
[2018-12-30] MEDS: DOCUSATE SOD 100 MG CAP PO SCH (21:40)
[2018-12-30 21:50] VITALS: BP 101/61
--- NOTE | 2018-12-30 22:42 | NUR ---
NURSING NOTE Patient urinated and had a small/smear bowel movement. Patient was cleansed at this time. Applied Z-Guard cream. Sacrum area has some redness. Patient tolerated procedure well. HOB is elevated to maintain aspiration precautions. Will continue care.
[2018-12-31] MEDS: ACETYLCYSTEINE 10 %(100MG/ML) SOL 4ML NEB SCH ×3 (00:18→13:01)
[2018-12-31] MEDS: IPRATROPIUM BROM 0.5 MG/2.5ML INH SOL NEB SCH ×3 (00:18→13:01)
[2018-12-31] MEDS: ALBUTEROL SULF 2.5 MG/0.5ML(0.5%) NEB SOLN NEB SCH ×3 (00:19→13:01)
--- NOTE | 2018-12-31 01:35 | NUR ---
ROUNDS Patient resting in bed. Respirations are even and unlabored. No s/s of distress.
[2018-12-31 05:06] VITALS: BP 132/71
--- NOTE | 2018-12-31 05:36 | NUR ---
TURNED PATIENT Turned and cleaned patient. She is incontinent and had a smear BM and urinated. Optifoam in place and Z Guard applied. Patient tolerated well.
[2018-12-31] MEDS: Ensure HIGH Protein Chocolate 8oz Bottle PO SCH (06:00)
[2018-12-31] MEDS: VALPROIC ACID 250 MG/5 ML ORAL SOLN PO SCH (06:25)
[2018-12-31] MEDS: LEVOTHYROXINE SODIUM 50 MCG TAB PO SCH (06:26)
--- NOTE | 2018-12-31 07:36 | NUR ---
END OF SHIFT NOTE Gave report to day shift RN. Patient is in bed with no s/s of distress or pain. Respirations are even and unlabored. Aspiration and seizure precautions in place.
[2018-12-31 09:00] VITALS: BP 144/60
[2018-12-31] MEDS: FAMOTIDINE 20 MG TAB PO SCH (09:36)
[2018-12-31] MEDS: ENOXAPARIN SOD 40 MG/0.4 ML SYRINGE SC SCH (09:36)
[2018-12-31] MEDS: Pro-Stat SF 30ml Vanilla PO SCH (09:37)
[2018-12-31] MEDS ORDERED: LEVOFLOXACIN 500 MG TAB PO SCH (10:00)
--- NOTE | 2018-12-31 10:55 | NUR ---
PER YVONNE HUANG, PT HAS BEEN ACCEPTED TO [facility]. TRANSPORT ETA FISH RECEIVER AT 1230. REPORT: [phone]
--- NOTE | 2018-12-31 10:59 | NUR ---
D/C Planning Followed up called to [facility] spoke to Diane regarding placement for Pt. Per Diane from [facility] Pt has been accepted to [facility] Contacted [facility] spoke to Saira and Pt has been accepted to room accepting MD Dr. Smith. Contacted [facility] transportation Ph:( [phone]) spoke to Max. Advised Max from [facility] for crop picker time to be arrange at 12:30 via Informed ANJANA Jay. Addendum: 12/31/18 at 1105 by REINA ELIAS Amended: Links added.
[2018-12-31 12:35] VITALS: BP 91/42
--- NOTE | 2018-12-31 12:35 | NUR ---
REPORT CALLED TO [facility] RECEIVED REPORT, ALL QUESTIONS AND CONCERNS ADDRESSED.
--- NOTE | 2018-12-31 13:50 | NUR ---
DISCHARGE INSTRUCTIONS PRINTED, ATTEMPTED TO CONTACT SISTER AND ROMÁN (CAREGIVER) x2. IV CATHETER DC'D, NO PHLEBITIS, CATHETER INTACT. TRANSFERRED VERIFIED WITH [facility]. PT GOING TO [facility] WITH [facility]. ARCH FROM [facility] HERE FOR GARMENT MENDER. REPORT GIVEN, QUESTIONS AND CONCERNS ADDRESSED. PT SAFELY ESCORTED OUT OF UNIT.
== END 2018-12-31 13:45 | disposition hospice, home (50) | DRG 145 ==
LOC: ER 08:38 → TELE 08:39 → TELE-WESTW 15:06 → ICU WEST 12-25 17:35 → DOU IN ICU 12-25 21:30 → TELE-CENTR 12-28 15:27 → CENTRAL 12-30 14:11
PROVIDERS: ADMIT Internal Medicine; ATTEND Internal Medicine Nephrology
DX: J20.9 Acute bronchitis, unspecified (principal); J69.0 Pneumonitis due to inhalation of food and vomit; E43 Unspecified severe protein-calorie malnutrition; N17.9 Acute kidney failure, unspecified; E86.0 Dehydration; J45.909 Unspecified asthma, uncomplicated; E03.9 Hypothyroidism, unspecified; Z66 Do not resuscitate; Z51.5 Encounter for palliative care; F79 Unspecified intellectual disabilities; J98.11 Atelectasis; N18.9 Chronic kidney disease, unspecified; E87.6 Hypokalemia; G40.909 Epilepsy, unspecified, not intractable, without status epilepticus; K29.70 Gastritis, unspecified, without bleeding; Q90.9 Down syndrome, unspecified; K59.00 Constipation, unspecified; Z79.899 Other long term (current) drug therapy; Z68.24 Body mass index [BMI] 24.0-24.9, adult
CPT/HCPCS: 31720; 36415; 71045; 71275; 80048; 80053; 80164; 80202; 81001; 82533; 83605; 83735; 83880; 84443; 84484; 85007; 85025; 85027; 85379; 85610; 85730; 87040; 87081; 92610; 93306; 94640; G0378; J0696; J1956; J2543; J3490; J7060